=== PATIENT | male | born 1965 | race Hispanic/Latino ===

== ENCOUNTER 2025-05-07 12:53 | Emergency (ER) | payer OTHER ==
[~2025-05-07] VITALS: Ht 172.7 cm; Wt 68.0 kg
[2025-05-07 13:25] LABS: BASOPHILS % 0.4 % (0.0-1.0); EOSINOPHILS % 2.5 % (0.0-6.0); LYMPHOCYTES % 17.9 % (18.0-39.1); MONOCYTES % 9.9 % (4.4-11.3); NEUTROPHILS % 69.2 % (38.7-80.0); RED CELL DISTRIBUTION WIDTH 12.0 % (11.7-14.4)
[2025-05-07 13:31] LABS: INR 0.9
[2025-05-07 13:41] LABS: EST GLOMERULAR FILTRATION RATE 102.0 ML/MIN (>=60)
[2025-05-07] MEDS: ONDANSETRON HCL INJ 2MG/ML 2ML 2 MG/ML VIAL IV STA (14:27)
[2025-05-07] MEDS: KETOROLAC TROMETHAMINE 30 MG/ML VIAL IV STA (14:28)
[2025-05-07] MEDS: HYDROCODONE/APAP 7.5MG-325MG 1 EA TAB PO ONE (14:28)
[2025-05-07] MEDS ORDERED: ULTRAM 50MG50 MG PO (16:23)
[2025-05-07 16:34] VITALS: PULSE 54; RESP 16; TEMP 97.6; O2SAT 98
== END 2025-05-07 16:42 | disposition home or self-care (01) ==
LOC: ER 13:01
DX: S00.83XA Contusion of other part of head, initial encounter (principal); S20.212A Contusion of left front wall of thorax, initial encounter; R00.1 Bradycardia, unspecified; W01.0XXA Fall on same level from slipping, tripping and stumbling without subsequent striking against object, initial encounter; Y93.01 Activity, walking, marching and hiking; Y92.89 Other specified places as the place of occurrence of the external cause; G93.9 Disorder of brain, unspecified; I10 Essential (primary) hypertension
CPT/HCPCS: 36415; 70450; 71250; 72125; 80053; 83735; 83880; 84484; 85025; 85610; 85730; 93005; 99284; J1885; J2405